=== PATIENT | male | born 1950 | race Caucasian/White ===

== ENCOUNTER 2019-01-28 10:11 | Day surgery (SDC) | payer MEDICARE, BC ==
[~2019-01-28 10:11] MED LIST: Propofol 200 MG/20 ML SDV ONE
[2019-01-28] MEDS ORDERED: Sodium Chloride 0.9% 10 ML Syringe FLUSH PRN (10:30)
[2019-01-28] MEDS: Lactated Ringers 1,000 ML IV SCH (10:38)
--- NOTE | 2019-01-28 10:44 | PCM.HPR ---
H & P Addendum review - H & P Addendum Review Date of Original H & P: 01/08/19 Date Reviewed: 01/28/19 Time Reviewed: 10:44 Patient was Examined: No Changes
[2019-01-28] MEDS ORDERED: Midazolam 1 MG/ML 2 ML SDV ONE ×2 (10:56→10:59)
[2019-01-28] MEDS ORDERED: Propofol 200 MG/20 ML SDV ONE (10:56)
--- NOTE | 2019-01-28 11:19 | PCM.OPNOTE ---
- General Post-Op/Procedure Note Date of Surgery/Procedure: 01/28/19 Operative Procedure(s): Colonoscopy Findings: Sig Tics Pre Op Diagnosis: Screening Post-Op Diagnosis: Same Anesthesia Technique: MAC Primary Surgeon: Gómez Ahn Anesthesia Provider: Ivelisse Souza Complications: None Condition: Good
--- NOTE | 2019-01-29 10:11 | OR ---
Date of Procedure: 01/28/2019 PREOPERATIVE DIAGNOSIS: Colon screening. POSTOPERATIVE DIAGNOSIS: Sigmoid diverticulosis. PROCEDURE: Colonoscopy. ANESTHESIA: IV sedation. DESCRIPTION OF PROCEDURE: The patient was brought to the procedure room where he was placed in the left side and IV sedation administered. Digital rectal exam was performed which was normal. Colonoscope was inserted and advanced to the level of the cecum without difficulty. Cecal position was confirmed by identifying the appendiceal lumen and ileocecal valve. Prep was good and surfaces were well visualized. Upon withdrawing the scope, the ascending, transverse, and descending colon were normal in appearance. Sigmoid colon has a few small diverticula present. Rectum was normal and retroflexion was normal. Air was removed and the scope withdrawn. The patient tolerated the procedure well and returned to recovery in stable condition. Recommend screening colonoscopy again in 5 years. MK BLACK MD /[id number]
== END 2019-01-28 12:15 | disposition home or self-care (01) ==
LOC: LL.SDS 10:11
PROVIDERS: ATTEND Surgery
DX: Z12.11 Encounter for screening for malignant neoplasm of colon (principal); K57.30 Diverticulosis of large intestine without perforation or abscess without bleeding; I10 Essential (primary) hypertension; E03.9 Hypothyroidism, unspecified; E11.40 Type 2 diabetes mellitus with diabetic neuropathy, unspecified; E11.69 Type 2 diabetes mellitus with other specified complication; E78.49 Other hyperlipidemia; M19.90 Unspecified osteoarthritis, unspecified site; Z80.0 Family history of malignant neoplasm of digestive organs; Z90.49 Acquired absence of other specified parts of digestive tract; Z79.899 Other long term (current) drug therapy; Z79.84 Long term (current) use of oral hypoglycemic drugs; Z79.82 Long term (current) use of aspirin
CPT/HCPCS: 00812; 82962; J2250; J2704; J7120

== ENCOUNTER 2020-10-15 03:01 | Emergency (ER) | payer MEDICARE, BC ==
[2020-10-15] MEDS ORDERED: Tetracaine HCl/PF 0.5% 4 ML Bottle ONE (03:13)
[2020-10-15] MEDS ORDERED: Polymyxin B/Trimethoprim 10 ML Bottle EYERT ONE ×2 (03:24→03:35)
--- NOTE | 2020-10-15 08:13 | EDM.PDOC ---
ED HPI GENERAL MEDICAL PROBLEM - General Chief Complaint: Eye Problems Stated Complaint: FOREIGN BODY IN EYE Time Seen by Provider: 10/15/20 03:20 Source of Information: Reports: Patient, RN History Limitations: Reports: No Limitations - History of Present Illness INITIAL COMMENTS - FREE TEXT/NARRATIVE: Pt. states that he was cutting up stone blocks yesterday without eye protection and developed discomfort in his R eye. He states that there was no specific injury and thinks he may have gotten a small amount of dust in the eye. Denies any acute vision loss or change. Pt. states that he wears corrective eye glasses. Pt. states that he flushed the copiously with water but still feels at though there is something in the eye. 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: Other Medication(s) Right Eye Pain Score (Numeric/FACES): 10 - Related Data Allergies Allergy/AdvReac Type Severity Reaction Status Date / Time No Known Allergies Allergy Verified 10/15/20 03:14 Home Meds: Home Meds Aspirin [Ecotrin EC] 81 mg PO DAILY 01/28/19 [History] Glimepiride [Amaryl] 2 mg PO DAILY 01/28/19 [History] Levothyroxine [Synthroid] 100 mcg PO BEDTIME 01/28/19 [History] Moexipril [Univasc] 7.5 mg PO DAILY 01/28/19 [History] atorvaSTATin [Lipitor] 10 mg PO BEDTIME 01/28/19 [History] Past Medical History HEENT History: Reports: Hard of Hearing, Impaired Vision Other HEENT History: wears glasses. Has bilateral hearing aides Cardiovascular History: Reports: Heart Valve Replacement, High Cholesterol Respiratory History: Reports: Other (See Below) Other Respiratory History: pulmonary nodule Genitourinary History: Reports: None Musculoskeletal History: Reports: Other (See Below) Other Musculoskeletal History: Tietze's Disease. Osteoarthritis. Neurological History: Reports: None Psychiatric History: Reports: None Endocrine/Metabolic History: Reports: Diabetes, Type II, Hypothyroidism Hematologic History: Reports: None Immunologic History: Reports: None Oncologic (Cancer) History: Reports: None Dermatologic History: Reports: None - Past Surgical History HEENT Surgical History: Reports: Adenoidectomy, Tonsillectomy GI Surgical History: Reports: Appendectomy, Colonoscopy Social & Family History - Tobacco Use Tobacco Use Status *Q: Never Tobacco User - Caffeine Use Caffeine Use: Reports: None - Recreational Drug Use Recreational Drug Use: No ED ROS GENERAL - Review of Systems Review Of Systems: Comprehensive ROS is negative, except as noted in HPI. ED EXAM GENERAL W FULL EYE - Physical Exam Exam: See Below Exam Limited By: No Limitations General Appearance: Alert, WD/WN, No Apparent Distress Eye Exam: Bilateral Eye: EOMI, Normal Fundi, Normal Inspection, PERRL Eyelids: Right: Edema, Lid Everted for Exam Conjunctiva & Sclera: Right: Conjunctival Edema Cornea Exam: Right: Examined with Flourescein (No retained body under eyelid. Corneal abrasion lateral at edge of iris. No obvious retained material on the surface of the eye.) Extraocular Movements: Bilateral: Intact Pupils: Normal Accommodation Pupillary Size: Bilateral: 3 mm Pupillary Reaction: Bilateral: Brisk Anterior Chamber: Bilateral: Normal Appearance Posterior Chamber: Bilateral: Normal Funduscopic Course - Vital Signs Last Recorded V/S: Last Vital Signs Temp 36.2 C 10/15/20 03:06 Pulse 71 10/15/20 03:06 Resp 12 10/15/20 03:06 BP 140/78 10/15/20 03:06 Pulse Ox 100 10/15/20 03:06 - Orders/Labs/Meds Meds: Medications Discontinued Medications Generic Name Dose Route Start Last Admin Trade Name Freq PRN Reason Stop Dose Admin Polymyxin/Trimethoprim Sulfate 1 ml 10/15/20 03:24 10/15/20 03:37 Polymyxin B/Trimethoprim 10 Ml Bottle EYERT 10/15/20 03:25 1 drop ONETIME ONE Administration Tetracaine HCl Confirm 10/15/20 03:13 10/15/20 03:18 Tetracaine Hcl/Pf 0.5% 4 Ml Bottle Administered 10/15/20 03:14 2 drop Dose Administration 4 ml .ROUTE .STK-MED ONE Departure - Departure Time of Disposition: 04:00 Disposition: Home, Self-Care 01 Clinical Impression: Corneal abrasion - Discharge Information Instructions: Polymyxin B; Trimethoprim eye drops, solution, Corneal Abrasion, [id number] Forms: ED Department Discharge Additional Instructions: Polytrim drops 1 drop 5 times daily for 10 days Follow-up in clinic on Friday for slit lamp examination Always wear wrap around eye protection when cutting stone or using any power tools. Sepsis Event Note (ED) - Evaluation Sepsis Screening Result: No Definite Risk - Focused Exam Vital Signs: Vital Signs Temp Pulse Resp BP Pulse Ox 10/15/20 03:06 36.2 C 71 12 140/78 100 - Problem List Review Problem List Initiated/Reviewed/Updated: Yes - Assessment/Plan Plan: Polytrim drops 1 drop 5 times daily for 10 days Follow-up in clinic on Friday for slit lamp examination Always wear wrap around eye protection when cutting stone or using any power tools.
== END 2020-10-15 03:40 | disposition home or self-care (01) ==
LOC: LL.ED 03:01
DX: S05.01XA Injury of conjunctiva and corneal abrasion without foreign body, right eye, initial encounter (principal); E78.00 Pure hypercholesterolemia, unspecified; E03.9 Hypothyroidism, unspecified; E11.9 Type 2 diabetes mellitus without complications; Z79.82 Long term (current) use of aspirin; Z79.899 Other long term (current) drug therapy; W22.8XXA Striking against or struck by other objects, initial encounter
CPT/HCPCS: 99283; A9270-GY

== ENCOUNTER 2024-06-17 10:52 | Day surgery (SDC) | payer MEDICARE ==
[~2024-06-17 10:52] MED LIST changes: +Midazolam 1 MG/ML 2 ML SDV ONE; +Sodium Chloride 0.9% 10 ML Syringe FLUSH PRN
[2024-06-17] MEDS: Lactated Ringers 1,000 ML IV SCH (11:47)
== END 2024-06-17 13:23 | disposition home or self-care (01) ==
LOC: LL.SDS 10:52
PROVIDERS: ATTEND Surgery
DX: Z12.11 Encounter for screening for malignant neoplasm of colon (principal); D12.2 Benign neoplasm of ascending colon; Z80.0 Family history of malignant neoplasm of digestive organs; E11.59 Type 2 diabetes mellitus with other circulatory complications; E11.40 Type 2 diabetes mellitus with diabetic neuropathy, unspecified; I10 Essential (primary) hypertension; E06.3 Autoimmune thyroiditis; Z79.84 Long term (current) use of oral hypoglycemic drugs; Z79.899 Other long term (current) drug therapy
CPT/HCPCS: 00811; 82947; 99100; J2250; J2704; J7120